=== PATIENT | female | born 2000 | race Hispanic/Latino ===

== ENCOUNTER 2023-09-03 07:53 | Emergency (ER) | payer SELFPAY ==
[2023-09-03] MEDS ORDERED: Sulfameth/Trimethoprim DS 800-160mg TAB ONE (08:17)
== END 2023-09-03 08:25 | disposition home or self-care (01) ==
LOC: NAV ERS 07:53
DX: L02.415 Cutaneous abscess of right lower limb (principal)
CPT/HCPCS: 99283